=== PATIENT | female | born 1990 | race Hispanic/Latino ===

== ENCOUNTER 2019-02-04 19:39 | Emergency (ER) | payer MEDICAID, OTHER ==
[~2019-02-04 19:39] MED LIST: PREN-196 PO; PREN1TAB80 PO
[2019-02-04] MEDS ORDERED: DEXAMETHASONE SOD PHOSPHATE 10MG/ML 1ML VIAL ONE (20:04)
[2019-02-04 20:07] LABS: APPEARANCE,URINE Clear (CLEAR); BILIRUBIN,URINE Negative (NEGATIVE); COLOR,URINE Yellow (YELLOW); GLUCOSE, URINE (UA) Negative (NEGATIVE); HCG,QUAL RESULT NEGATIVE (NEGATIVE); KETONES,URINE Negative (NEGATIVE); LEUKOCYTE ESTERASE ,URINE Trace (NEGATIVE); NITRATE,URINE Negative (NEGATIVE); OCCULT BLOOD,URINE Nonhemolyzed Trace (NEGATIVE); PH,URINE 7.5 (5.0-8.0); PROTEIN,URINE Negative (NEGATIVE)
[2019-02-04 20:16] LABS: BACTERIA,URINE None Seen /HPF (None Seen); RBC,URINE 0-1 /HPF (0-1); WBC,URINE None Seen /HPF (0-1)
== END 2019-02-04 20:18 | disposition home or self-care (01) ==
LOC: EDH 19:39
DX: J01.10 Acute frontal sinusitis, unspecified (principal); Z98.890 Other specified postprocedural states
CPT/HCPCS: 81001; 81025; 96372; 99284; J1100

== ENCOUNTER 2020-07-01 13:47 | Observation (INO) | payer BC, MEDICAID ==
[~2020-07-01] VITALS: Ht 165.1 cm; Wt 113.9 kg
== END 2020-07-01 15:47 | disposition home or self-care (01) ==
LOC: EDH 13:47 → LDH 14:01
PROVIDERS: ADMIT Obstetrics & Gynecology; ATTEND Obstetrics & Gynecology
DX: O26.893 Other specified pregnancy related conditions, third trimester (principal); R10.10 Upper abdominal pain, unspecified; Z3A.37 37 weeks gestation of pregnancy
CPT/HCPCS: 59025; 99283; G0378